=== PATIENT | male | born 1945 | race Asian ===

== ENCOUNTER 2017-02-28 11:47 | Inpatient (IN) | payer MEDICARE ==
[~2017-02-28] VITALS: Ht 157.5 cm; Wt 40.8 kg
[~2017-02-28 11:47] MED LIST: PIPERACILLIN SODIUM/TAZOBACTAM 4.5 G in IV DEXTROSE 5% 50 ML IV SCH
[2017-02-28] MEDS ORDERED: IV NORMAL SALINE 500 ML BAG IV ONE (12:00)
[2017-02-28] MEDS ORDERED: ACET500C4 PO (12:08)
[2017-02-28] MEDS ORDERED: ACET-73 PO (12:08)
[2017-02-28] MEDS ORDERED: CARB15DR56 OP (12:08)
[2017-02-28] MEDS ORDERED: GABA-534 PO (12:08)
[2017-02-28] MEDS ORDERED: BISA10SU12 RC (12:08)
[2017-02-28] MEDS ORDERED: QUET50TA PO ×3 (12:08)
[2017-02-28] MEDS ORDERED: DOCU100C36 PO (12:08)
[2017-02-28] MEDS ORDERED: CARB1TAB21 PO (12:08)
[2017-02-28] MEDS ORDERED: HYDR-3972 PO (12:08)
[2017-02-28] MEDS ORDERED: MAGN400O6 PO (12:08)
[2017-02-28 12:28] LABS: BASOPHILS # (AUTO) 0.2 K/uL (0.0-8.0); BASOPHILS % (AUTO) 1.6 % (0.0-2.0); EOSINOPHILS # (AUTO) 0.1 K/uL (0.0-0.7); EOSINOPHILS % (AUTO) 0.9 % (0.0-7.0); HEMATOCRIT 48.6 % (40-50); HEMOGLOBIN 15.8 G/DL (14.0-18.0); LYMPHOCYTES # (AUTO) 1.3 K/UL (0.8-4.8); LYMPHOCYTES % (AUTO) 12.4 % (20.5-51.5); MEAN CORPUSCULAR HEMOGLOBIN 30.6 UUG (27.0-31.0); MEAN CORPUSCULAR HGB CONC 33 g/dL (32.0-37.0); MONOCYTES # (AUTO) 0.4 K/UL (0.1-1.30); MONOCYTES % (AUTO) 3.3 % (0.0-11.0); NEUTROPHILS # (AUTO) 8.8 K/UL (1.8-8.9); NEUTROPHILS % (AUTO) 81.8 % (38.5-71.5); PLATELET COUNT (AUTO) 364 K/UL (150-450); RED BLOOD CELL COUNT(AUTO) 5.17 MIL/UL (4.7-6.1); WHITE BLOOD COUNT (AUTO) 10.8 K/UL (4.0-11.2)
[2017-02-28 12:35] LABS: CARBON DIOXIDE 34 mmol/L (21-32); CHLORIDE 103 mmol/L (98-107); CREATININE 0.9 mg/dL (0.6-1.3); GLUCOSE 114 mg/dL (74-106); POTASSIUM 4.2 mmol/L (3.5-5.1); UREA NITROGEN, BLOOD 15 mg/dL (7-18)
[2017-02-28 12:40] LABS: ALANINE AMINOTRANSFERASE 18 U/L (16-63); ALKALINE PHOSPHATASE 108 U/L (50-136); ASPARTATE AMINOTRANSFERASE 11 U/L (15-37); BILIRUBIN,DIRECT 0.2 mg/dL (0.0-0.2); BILIRUBIN,TOTAL 0.7 mg/dL (0.2-1.0); TOTAL PROTEIN, SERUM 8.9 g/dL (6.4-8.2)
[2017-02-28 12:43] LABS: ACETAMINOPHEN < 2.0 ug/mL (10-30)
[2017-02-28 12:48] LABS: BAND % (MANUAL) 3 % (0-10); EOSINOPHILS % (MANUAL) 1 % (0-8); LYMPHOCYTES % (MANUAL) 13 % (20-40); MONOCYTES % (MANUAL) 3 % (2-10); NEUTROPHILS % (MANUAL) 80 % (42-75)
--- NOTE | 2017-02-28 12:53 | NUR ---
Pt BIB [facility], reports that pt started choking while eating today, may have aspirated some food. Pt is non-communicative. No distress noted.
[2017-02-28 12:59] LABS: ETHANOL < 3 MG/DL (0-0)
[2017-02-28 13:05] LABS: THYROID STIMULATING HORMONE 2.104 mIU/mL (0.358-3.740)
[2017-02-28] MEDS ORDERED: ONDANSETRON ODT 4 MG TAB.RAPDIS ONE (13:14)
--- NOTE | 2017-02-28 14:20 | NUR ---
Info for pt's [facility] facility (per ): [facility] [id number] [id number] [address]: [phone] Higinio (Admin.): [phone]
--- NOTE | 2017-02-28 14:39 | NUR ---
Using aseptic technique, inserted in-and-out catheter for urine sample, taken to lab.
[2017-02-28 15:00] LABS: *BILIRUBIN,URIN NEGATIVE (NEGATIVE); *BLOOD, URINE NEGATIVE (NEGATIVE); *CLARITY,URINE SLIGHTLY CLOUDY (CLEAR); *COLOR,URINE YELLOW (YELLOW); *KETONES,URINE NEGATIVE (NEGATIVE); *PROTEIN,URINE 1+ (NEGATIVE); *UROBILINOGEN,URINE 0.2 E.U./dl (NORMAL); LEUKOCYTE ESTERASE ,URINE NEGATIVE (NEGATIVE); NITRITE, URINE NEGATIVE (NEGATIVE); UGLUCOSE NEGATIVE (NEGATIVE)
[2017-02-28] MEDS ORDERED: IMIPENEM/CILASTATIN SODIUM 500 MG in IV NORMAL SALINE 100 ML IV ONE (15:00)
[2017-02-28] MEDS ORDERED: AZITHROMYCIN IV 500 MG in IV DEXTROSE 5% 250 ML IV ONE (15:00)
[2017-02-28 15:10] LABS: RBC,URINE 0-3 /HPF (0-3)
[2017-02-28 15:11] LABS: BACTERIA,URINE NONE SEEN /HPF (NONE SEEN); SQUAMOUS EPITHELIAL CELL,UR NONE SEEN /HPF (NONE SEEN)
[2017-02-28] MEDS ORDERED: PIPERACILLIN SODIUM/TAZOBACTAM 4.5 G in IV DEXTROSE 5% 50 ML IV SCH (15:15)
[2017-02-28] MEDS ORDERED: AZITHROMYCIN 500 MG VIAL IV ONE (15:25)
--- NOTE | 2017-02-28 16:12 | NUR ---
Called to give report, Nurse unavailable currently
--- NOTE | 2017-02-28 16:20 | NUR ---
[facility] report given to Edith via telephone.
[2017-02-28] MEDS ORDERED: PIPERACILLIN/TAZO 4.5 GM VIAL IV ONE (16:31)
--- NOTE | 2017-02-28 16:55 | NUR ---
received patient from er, made comfortable. confused, oriented to room, call light in reach . hob up for safety. see admission assessment.
[2017-02-28 17:00] VITALS: BP 93/57
[2017-02-28] MEDS ORDERED: Z GUARD REMEDY PASTE 57 GM TUBE TOP PRN (17:00)
[2017-02-28] MEDS ORDERED: ACETAMINOPHEN 325 MG TABLET PO PRN (17:00)
[2017-02-28] MEDS ORDERED: ZOLPIDEM 5 MG TABLET PO PRN (17:00)
[2017-02-28] MEDS ORDERED: ONDANSETRON 4 MG/2 ML VIAL IV PRN (17:00)
[2017-02-28] MEDS ORDERED: MAGNESIUM HYDROXIDE 30 ML LIQUID UDC PO PRN (17:00)
[2017-02-28] MEDS ORDERED: HYDROCODONE/APAP 5-325MG TABLET PO PRN (17:00)
--- NOTE | 2017-02-28 17:37 | NUR ---
CLINICAL PHARMACY NOTE: VANCOMYCIN PHARMACY TO DOSE Subjective: To start vanco in this 71 y/o gentleman for indication of documented infection (no MD note yet) Objective: height 157 cm weight 40 kg BUN 15 Scr 0.9 Wbc 10.8 temp 97.6 Assessment/Plan Will start vancomycin 500mg q21hr for estimated trouh of 14.9, first dose tonight at 1900. Will check trough before 4th scheduled dose (not ordered yet). will follow
[2017-02-28] MEDS: VANCOMYCIN IV 500 MG in IV DEXTROSE 5% 100 ML IV SCH (19:05)
[2017-02-28] MEDS: IV NS 1000 ML 1,000 ML IV PRN (19:05)
--- NOTE | 2017-02-28 19:45 | NUR ---
PT RECEIVED LAYING IN BED, NO ACUTE DISTRESS NOTED. PT IS CONFUSED, NON VERBAL, AFFECT IS FLAT, DISPLAYS POOR EYE CONTACT. PT IS ALSO RIGID AND SPASTIC WITH CARE NURSING CARE. IVF RUNNING IN LEFT AC AT 75ML/HR, TOLERATING WELL. PT TURNED IN BED Q2 HOURS. BED IN LOW AND LOCKED POSITION. WILL CONTINUE TO MONITOR FOR SAFETY.
[2017-02-28] MEDS: GABAPENTIN 300 MG CAPSULE PO SCH (21:00)
[2017-02-28] MEDS: ENOXAPARIN SODIUM 40 MG/0.4 ML DISP.SYRIN SQ SCH (21:33)
[2017-03-01] MEDS: PIPERACILLIN SODIUM/TAZOBACTAM 4.5 G in IV DEXTROSE 5% 50 ML IV SCH ×4 (00:02→21:17)
[2017-03-01 00:10] VITALS: BP 119/71
--- NOTE | 2017-03-01 01:27 | NUR ---
PT REMAINS DRY AT THIS TIME. BLADDER SCAN DONE 47ML NOTED. PT ON IVF AT THIS TIME 75ML/HR. WILL CONTINUE TO MONITOR.
[2017-03-01 04:00] VITALS: BP 119/62
[2017-03-01 06:32] LABS: CARBON DIOXIDE 29 mmol/L (21-32); CHLORIDE 106 mmol/L (98-107); CHOLESTEROL 132 mg/dL (<200); CREATININE 0.8 mg/dL (0.6-1.3); GLUCOSE 105 mg/dL (74-106); HDL CHOLESTEROL 48 mg/dL (40-60); MAGNESIUM 2.2 mg/dL (1.8-2.4); PHOSPHOROUS 2.9 mg/dL (2.5-4.9); TRIGLYCERIDES 49 MG/DL (30-150); UREA NITROGEN, BLOOD 12 mg/dL (7-18)
--- NOTE | 2017-03-01 06:41 | NUR ---
PT AWAKE IN BED, ABLE TO SPEAK ONE WORD ANSWERS BUT STILL NON VERBAL AT TIMES. PT REMAINS DRY, BLADDER SCAN DONE WITH MINIMAL LESS THAN 50ML. PT DENIES ANY PAIN. WILL CONTINUE TO MONITOR FOR SAFETY.
[2017-03-01 07:00] LABS: EOSINOPHILS # (AUTO) 0.1 K/uL (0.0-0.7); HEMOGLOBIN 14.1 g/dL (12.5-16.3); LYMPHOCYTES # (AUTO) 1.2 K/uL (20.0-40.0); MONOCYTES # (AUTO) 0.3 K/uL (2.0-10.0)
[2017-03-01 07:15] LABS: BASOPHILS % (AUTO) 0.3 % (0.0-2.0); EOSINOPHILS % (AUTO) 2.3 % (0.0-7.0); HEMATOCRIT 41.9 % (36.7-47.1); MEAN CORPUSCULAR HEMOGLOBIN 31.9 uug (23.8-33.4); MEAN CORPUSCULAR HGB CONC 34 g/dL (32.5-36.3); MEAN CORPUSCULAR VOLUME 94.5 fL (73.0-96.2); MONOCYTES % (AUTO) 5.6 % (0.0-11.0); NEUTROPHILS % (AUTO) 70.8 % (38.5-71.5); PLATELET COUNT (AUTO) 286 K/uL (152-348); RED BLOOD CELL COUNT(AUTO) 4.43 MIL/uL (4.06-5.63)
[2017-03-01 07:16] LABS: WHITE BLOOD COUNT (AUTO) 5.7 K/uL (3.6-10.2)
[2017-03-01 11:22] VITALS: BP 110/56
--- NOTE | 2017-03-01 11:34 | NUR ---
CLINICAL PHARMACY NOTE: VANCOMYCIN PHARMACY TO DOSE Subjective: To continue vanco in this 71 y/o gentleman for indication of pna (r/o asp pna) Objective: height 157 cm weight 40 kg BUN 12 Scr 0.8 Wbc 5.7 temp 99 Assessment/Plan Will continue same dose of vancomycin 500mg q21hr for estimated trough of 14.9. Second dose is due today at 1600. Will check trough before 4th scheduled dose (not ordered yet). will follow
[2017-03-01] MEDS: IV NS 1000 ML 1,000 ML IV PRN (12:05)
[2017-03-01] MEDS: IV D5 1/2 NS 1000 ML 1,000 ML IV PRN (14:21)
[2017-03-01 15:44] VITALS: BP 111/60
[2017-03-01] MEDS: VANCOMYCIN IV 500 MG in IV DEXTROSE 5% 100 ML IV SCH (16:41)
[2017-03-01] MEDS: CARBIDOPA/LEVODOPA 25-100MG TABLET PO SCH ×2 (17:00→21:00)
[2017-03-01 20:25] VITALS: BP 130/64
[2017-03-01] MEDS: GABAPENTIN 300 MG CAPSULE PO SCH (21:00)
[2017-03-01] MEDS: ENOXAPARIN SODIUM 40 MG/0.4 ML DISP.SYRIN SQ SCH (21:18)
[2017-03-02 04:00] VITALS: BP 123/72
[2017-03-02] MEDS: PIPERACILLIN SODIUM/TAZOBACTAM 4.5 G in IV DEXTROSE 5% 50 ML IV SCH ×3 (05:02→21:46)
--- NOTE | 2017-03-02 06:43 | NUR ---
PT IN BED, IN NO ACUTE SIGNS OF DISTRESS. NONVERBAL. IVF STILL INFUSING. TURNED AND REPOSITIONED. SAFETY MEASURES RENDERED.
[2017-03-02] MEDS: CARBIDOPA/LEVODOPA 25-100MG TABLET PO SCH ×4 (09:00→20:19)
[2017-03-02] MEDS: IV D5 1/2 NS 1000 ML 1,000 ML IV PRN (09:11)
[2017-03-02 11:24] VITALS: BP 118/72
[2017-03-02] MEDS: VANCOMYCIN IV 500 MG in IV DEXTROSE 5% 100 ML IV SCH (13:24)
--- NOTE | 2017-03-02 15:39 | NUR ---
CLINICAL PHARMACY NOTE: VANCOMYCIN PHARMACY TO DOSE Subjective: To continue vanco in this 71 y/o gentleman for indication of pna (r/o asp pna) Objective: height 157 cm weight 40 kg BUN 12 (03/01) Scr 0.8(03/01) Wbc 5.7(03/01) temp 99 Assessment/Plan Will continue same dose of vancomycin 500mg q21hr for estimated trough of 14.9. Third dose was given today at 1324. Will check trough before 4th scheduled dose (ordered for tomorrow at 0930). will follow
[2017-03-02 16:35] VITALS: BP 119/70
[2017-03-02 20:00] VITALS: BP 115/71
[2017-03-02] MEDS: GABAPENTIN 300 MG CAPSULE PO SCH (20:19)
[2017-03-02] MEDS: ENOXAPARIN SODIUM 40 MG/0.4 ML DISP.SYRIN SQ SCH (20:21)
[2017-03-03] MEDS: IV D5 1/2 NS 1000 ML 1,000 ML IV PRN (02:05)
[2017-03-03] MEDS: PIPERACILLIN SODIUM/TAZOBACTAM 4.5 G in IV DEXTROSE 5% 50 ML IV SCH ×3 (05:42→22:13)
[2017-03-03 06:05] VITALS: BP 136/82
[2017-03-03] MEDS: CARBIDOPA/LEVODOPA 25-100MG TABLET PO SCH ×4 (09:00→20:25)
[2017-03-03 11:06] VITALS: BP 120/73
[2017-03-03] MEDS: VANCOMYCIN IV 500 MG in IV DEXTROSE 5% 100 ML IV SCH (11:18)
[2017-03-03 11:19] LABS: ALANINE AMINOTRANSFERASE 19 U/L (16-63); ALKALINE PHOSPHATASE 72 U/L (50-136); ASPARTATE AMINOTRANSFERASE 10 U/L (15-37); BILIRUBIN,TOTAL 0.7 mg/dL (0.2-1.0); CARBON DIOXIDE 27 mmol/L (21-32); CHLORIDE 105 mmol/L (98-107); GLUCOSE 135 mg/dL (74-106); MAGNESIUM 2.1 mg/dL (1.8-2.4); PHOSPHOROUS 2.8 mg/dL (2.5-4.9); POTASSIUM 5.4 mmol/L (3.5-5.1); TOTAL PROTEIN, SERUM 6.9 g/dL (6.4-8.2); UREA NITROGEN, BLOOD 4 mg/dL (7-18)
[2017-03-03 11:23] LABS: BASOPHILS % (AUTO) 0.4 % (0.0-2.0); EOSINOPHILS # (AUTO) 0.1 K/uL (0.0-0.7); EOSINOPHILS % (AUTO) 1.7 % (0.0-7.0); HEMATOCRIT 42.5 % (40-50); HEMOGLOBIN 14.2 G/DL (14.0-18.0); LYMPHOCYTES # (AUTO) 1.4 K/UL (0.8-4.8); LYMPHOCYTES % (AUTO) 21.1 % (20.5-51.5); MEAN CORPUSCULAR HGB CONC 34 g/dL (32.0-37.0); MEAN CORPUSCULAR VOLUME 92.5 FL (82.0-92.0); MONOCYTES # (AUTO) 0.5 K/UL (0.1-1.30); MONOCYTES % (AUTO) 7.3 % (0.0-11.0); NEUTROPHILS # (AUTO) 4.8 K/UL (1.8-8.9); NEUTROPHILS % (AUTO) 69.5 % (38.5-71.5); PLATELET COUNT (AUTO) 372 K/UL (150-450); RED BLOOD CELL COUNT(AUTO) 4.59 MIL/UL (4.7-6.1); WHITE BLOOD COUNT (AUTO) 6.8 K/UL (4.0-11.2)
--- NOTE | 2017-03-03 12:32 | NUR ---
CLINICAL PHARMACY NOTE: VANCOMYCIN PHARMACY TO DOSE Subjective: To continue vanco in this 71 y/o gentleman for indication of pna (r/o asp pna) Objective: height 157 cm weight 40 kg BUN 12 (03/01) Scr 0.8(03/01) Wbc 5.7(03/01) temp 97.7 vanoc trough level:3.7 Assessment/Plan Sincevanco trough level is sub-therapeutic, will change dose form vancomycin 500mg iv q21hr to vancomycin 500mg IVPB q13h for estimated trough of 14 mcg/ml. 1st dose is due today at 1100. Will check trough before 4th scheduled dose (not yet ordered). Will continue to follow up
[2017-03-03 15:03] VITALS: BP 113/56
[2017-03-03 20:00] VITALS: BP 129/78
[2017-03-03] MEDS: ENOXAPARIN SODIUM 40 MG/0.4 ML DISP.SYRIN SQ SCH (20:24)
[2017-03-03] MEDS: IV D5/ 0.9% NACL 1,000 ML IV PRN (20:25)
[2017-03-03] MEDS: GABAPENTIN 300 MG CAPSULE PO SCH (20:25)
--- NOTE | 2017-03-03 22:00 | NUR ---
PATIENT AWAKE IN BED, APHASIC BUT NO PAIN PER ASSESSMENT. LEN SIGNS ARE STABLE. MAINTAINED IVF. INCONTINENT CARE DONE. KEPT SAFE AND MONITORED.
[2017-03-04] MEDS: VANCOMYCIN IV 500 MG in IV DEXTROSE 5% 100 ML IV SCH ×2 (00:59→12:36)
[2017-03-04] MEDS: PIPERACILLIN SODIUM/TAZOBACTAM 4.5 G in IV DEXTROSE 5% 50 ML IV SCH ×3 (05:04→21:01)
--- NOTE | 2017-03-04 06:03 | NUR ---
HAD A POOR SLEEP THRU THE NIGHT. VSS. INCONTINENT CARE DONE. REPOSITIONED IN BED.
[2017-03-04 06:15] VITALS: BP 126/77
[2017-03-04 07:29] LABS: BASOPHILS % (AUTO) 0.2 % (0.0-2.0); EOSINOPHILS # (AUTO) 0.1 K/uL (0.0-0.7); EOSINOPHILS % (AUTO) 2.1 % (0.0-7.0); HEMATOCRIT 40.8 % (36.7-47.1); HEMOGLOBIN 14.2 g/dL (12.5-16.3); LYMPHOCYTES # (AUTO) 1.1 K/uL (20.0-40.0); LYMPHOCYTES % (AUTO) 19.3 % (20.5-51.5); MEAN CORPUSCULAR HEMOGLOBIN 32.4 uug (23.8-33.4); MEAN CORPUSCULAR HGB CONC 35 g/dL (32.5-36.3); MEAN CORPUSCULAR VOLUME 93.2 fL (73.0-96.2); MONOCYTES # (AUTO) 0.5 K/uL (2.0-10.0); MONOCYTES % (AUTO) 8.4 % (0.0-11.0); NEUTROPHILS # (AUTO) 4.1 K/uL (1.8-8.9); PLATELET COUNT (AUTO) 310 K/uL (152-348); RED BLOOD CELL COUNT(AUTO) 4.38 MIL/uL (4.06-5.63); WHITE BLOOD COUNT (AUTO) 5.9 K/uL (3.6-10.2)
[2017-03-04 07:57] LABS: ALANINE AMINOTRANSFERASE 20 U/L (16-63); ALKALINE PHOSPHATASE 70 U/L (50-136); ASPARTATE AMINOTRANSFERASE 13 U/L (15-37); BILIRUBIN,TOTAL 0.7 mg/dL (0.2-1.0); CARBON DIOXIDE 28 mmol/L (21-32); CHLORIDE 104 mmol/L (98-107); CREATININE 0.9 mg/dL (0.6-1.3); GLUCOSE 112 mg/dL (74-106); PHOSPHOROUS 2.5 mg/dL (2.5-4.9); POTASSIUM 3.5 mmol/L (3.5-5.1); TOTAL PROTEIN, SERUM 6.9 g/dL (6.4-8.2)
--- NOTE | 2017-03-04 08:00 | NUR ---
awake but aphasic, mouth open, oral care done, maintains eye contact when name is called, kept npo as ordered- Sinemet unable to give- pt didn't pass swallow eval, head of bed kept elevated, repositioned to side for comfort with heel off loaded with pillows, needs attended, bed alarm on
[2017-03-04] MEDS: CARBIDOPA/LEVODOPA 25-100MG TABLET PO SCH ×4 (08:35→20:53)
[2017-03-04 09:25] LABS: UREA NITROGEN, BLOOD 4 mg/dL (7-18)
[2017-03-04 12:47] VITALS: BP 119/71
--- NOTE | 2017-03-04 12:48 | NUR ---
ivpv abx given- will monitor for any reaction
--- NOTE | 2017-03-04 15:12 | NUR ---
CLINICAL PHARMACY NOTE: VANCOMYCIN PHARMACY TO DOSE Subjective: To continue vanco in this 71 y/o gentleman for indication of pna (r/o asp pna) Objective: height 157 cm weight 40 kg BUN 4 Scr 0.9 Wbc 5.9 temp 99.2 vanoc trough level:3.7 03/02 Assessment/Plan Will continue vancomycin 500mg IVPB q13h for estimated trough of 14 mcg/ml. third dose today at 1300. Will check trough before 4th scheduled dose (due tomorrow early am at 0130). RN endorsed to hold dose if trough >20. Huy check level in am and adjust as needed. Will continue to follow up
[2017-03-04 15:59] VITALS: BP 133/77
[2017-03-04] MEDS: IV D5/ 0.9% NACL 1,000 ML IV PRN (16:04)
--- NOTE | 2017-03-04 16:13 | NUR ---
daughter here visiting
--- NOTE | 2017-03-04 18:23 | NUR ---
no distress noted, all needs attended and met, repositioned q 2h with heels off loaded wisth pillows at all times, no redness noted on heels, kept clean and dry at all times
[2017-03-04 20:36] VITALS: BP 122/73
[2017-03-04] MEDS: ENOXAPARIN SODIUM 40 MG/0.4 ML DISP.SYRIN SQ SCH (20:52)
[2017-03-04] MEDS: GABAPENTIN 300 MG CAPSULE PO SCH (20:53)
--- NOTE | 2017-03-04 21:00 | NUR ---
MAINTAINED ON NPO. MOUTH CARE RENDERED. CONTINUED IVF ORDERED. INCONTINENT CARE DONE. REPOSITIONED IN BED.
[2017-03-05] MEDS: VANCOMYCIN IV 500 MG in IV DEXTROSE 5% 100 ML IV SCH (03:17)
[2017-03-05 04:00] VITALS: BP 145/80
[2017-03-05] MEDS: PIPERACILLIN SODIUM/TAZOBACTAM 4.5 G in IV DEXTROSE 5% 50 ML IV SCH (05:08)
--- NOTE | 2017-03-05 05:41 | NUR ---
PATIENT SLEPT INTERMITTENTLY THRU THE NIGHT. ORAL CARE AND INCONTINENT CARE RENDERED. REPOSITIONED IN BED. VITAL SIGNS ARE STABLE. NO NEW PROBLEM IDENTIFIED.
[2017-03-05] MEDS: IV D5/ 0.9% NACL 1,000 ML IV PRN (06:44)
[2017-03-05 06:53] LABS: ALANINE AMINOTRANSFERASE 23 U/L (16-63); ALKALINE PHOSPHATASE 65 U/L (50-136); ASPARTATE AMINOTRANSFERASE 19 U/L (15-37); BILIRUBIN,TOTAL 0.5 mg/dL (0.2-1.0); CARBON DIOXIDE 28 mmol/L (21-32); CHLORIDE 107 mmol/L (98-107); CREATININE 0.8 mg/dL (0.6-1.3); GLUCOSE 117 mg/dL (74-106); MAGNESIUM 2.1 mg/dL (1.8-2.4); PHOSPHOROUS 2.7 mg/dL (2.5-4.9); POTASSIUM 3.5 mmol/L (3.5-5.1); TOTAL PROTEIN, SERUM 6.8 g/dL (6.4-8.2); UREA NITROGEN, BLOOD 4 mg/dL (7-18)
[2017-03-05 06:59] LABS: BASOPHILS % (AUTO) 0.5 % (0.0-2.0); EOSINOPHILS # (AUTO) 0.1 K/uL (0.0-0.7); EOSINOPHILS % (AUTO) 2.1 % (0.0-7.0); HEMATOCRIT 41.5 % (36.7-47.1); HEMOGLOBIN 14.7 g/dL (12.5-16.3); LYMPHOCYTES # (AUTO) 1.5 K/uL (20.0-40.0); LYMPHOCYTES % (AUTO) 24.4 % (20.5-51.5); MEAN CORPUSCULAR HEMOGLOBIN 32.8 uug (23.8-33.4); MEAN CORPUSCULAR HGB CONC 36 g/dL (32.5-36.3); MEAN CORPUSCULAR VOLUME 92.5 fL (73.0-96.2); MONOCYTES # (AUTO) 0.7 K/uL (2.0-10.0); MONOCYTES % (AUTO) 10.6 % (0.0-11.0); NEUTROPHILS # (AUTO) 3.8 K/uL (1.8-8.9); NEUTROPHILS % (AUTO) 62.4 % (38.5-71.5); PLATELET COUNT (AUTO) 278 K/uL (152-348); RED BLOOD CELL COUNT(AUTO) 4.49 MIL/uL (4.06-5.63); WHITE BLOOD COUNT (AUTO) 6.2 K/uL (3.6-10.2)
[2017-03-05] MEDS: CARBIDOPA/LEVODOPA 25-100MG TABLET PO SCH ×2 (08:39→12:16)
[2017-03-05] MEDS ORDERED: LEVOFLOXACIN 500 MG TABLET PO SCH (10:15)
[2017-03-05 11:29] VITALS: BP 124/60
[2017-03-05] MEDS ORDERED: LEVOFLOXACIN 500 MG/D5W 500 MG in PREMIXED 1 EACH IV SCH (11:30)
[2017-03-05] MEDS ORDERED: VANCOMYCIN IV 750 MG in IV DEXTROSE 5% 250 ML IV SCH (12:00)
[2017-03-05] MEDS ORDERED: LEVO500P8 IV (12:16)
--- NOTE | 2017-03-05 14:10 | NUR ---
PT DISCHARGE TO HOSPICE CARE. PT D/C W/ ALL BELONGINGS, VALUABLES, EXIT-CARE PACKET, D/C PAPER WORK, SALINE LOCK ON THE RIGHT UPPER FOREARM. THE SALINE LOCK IS INTACT, NO INFLAMMATION OR SWELLING. PT IS STABLE TO D/C, VITAL SIGNS STABLE, SKIN INTACT, CALM, COOPERATIVE, AOX1.
[2017-03-05 15:08] LABS: *QFT MITOGEN VALUE 0.68 IU/mL (.); *QFT TB AG VALUE 0.03 IU/mL (.); *QFT TB GOLD Negative (Negative)
[2017-03-05 15:20] VITALS: BP 105/71
== END 2017-03-05 14:10 | disposition hospice, home (50) | DRG 177 ==
LOC: ER 11:49 → TELE 16:43 → MED 03-02 13:03
PROVIDERS: ADMIT Internal Medicine; ATTEND Internal Medicine
DX: J69.0 Pneumonitis due to inhalation of food and vomit (principal); J96.01 Acute respiratory failure with hypoxia; E43 Unspecified severe protein-calorie malnutrition; G93.41 Metabolic encephalopathy; G23.1 Progressive supranuclear ophthalmoplegia [Steele-Richardson-Olszewski]; R13.10 Dysphagia, unspecified; G20 Parkinson's disease; I71.2 Thoracic aortic aneurysm, without rupture; E87.5 Hyperkalemia; Z68.1 Body mass index [BMI] 19.9 or less, adult; J98.11 Atelectasis; Z66 Do not resuscitate; J98.2 Interstitial emphysema; F03.90 Unspecified dementia, unspecified severity, without behavioral disturbance, psychotic disturbance, mood disturbance, and anxiety; R73.9 Hyperglycemia, unspecified; Z51.5 Encounter for palliative care; Z98.2 Presence of cerebrospinal fluid drainage device; R62.7 Adult failure to thrive; K76.89 Other specified diseases of liver; I10 Essential (primary) hypertension; R91.1 Solitary pulmonary nodule; Z53.29 Procedure and treatment not carried out because of patient's decision for other reasons
CPT/HCPCS: 36415; 70030-TC; 71010; 71250; 83605; 83735; 84100; 84132; 84443; 85025; 85730; 86480; 87040; 87086; 92523; 92526; 93005; A4663; C1758; G0480; G0480-TC; J0456; J0743; J1650; J1956; J2543; J3370; J3490; J7030; J7040; J7042; J7060; Q0162